=== PATIENT | male | born 1950 | race Caucasian/White ===

== ENCOUNTER → 2021-07-09 10:14 | Outpatient (BNVA) | payer MEDICARE, OTHER, SELFPAY | PROVIDERS: Family Provider Nurse Practitioner Family; PCP Nurse Practitioner Family; Referring Provider Family Medicine; Visit Provider Orthopaedic Surgery | DX: M17.11 Unilateral primary osteoarthritis, right knee (principal); M25.561 Pain in right knee | CPT/HCPCS: 73560; 73565; 80500; 89051 ==

== ENCOUNTER 2021-08-17 14:13 | Outpatient (CLI) | payer MEDICARE, OTHER, SELFPAY ==
--- NOTE | 2021-08-17 15:15 | MR_ITS ---
WS: [id number] MRI RIGHT KNEE HISTORY: M25.569 - Pain in unspecified knee COMPARISON: None available. Anterior cruciate ligament: Mild thickening of the ACL but no full-thickness tear. Posterior cruciate ligament: Intrasubstance degeneration in the mid PCL. Medial collateral ligament: Mild displacement from the joint line by an extruded meniscus. Posterior lateral corner structures: Intact. Medial menisci: Small caliber posterior horn with abnormal signal. Significant fraying along the cary cular surfaces with a horizontal tear extending to the inferior articular surface. Lateral meniscus: Intact. Normal signal, size and shape. Extensor mechanism: Distal quadriceps tendon and patellar tendons are intact. Fluid and soft tissue: Moderate-sized suprapatellar joint effusion. Very tiny Ye's cyst. Osseous and articular structures: Patellofemoral compartment: Lateral subluxation of the patella. Complete loss of cartilage along the lateral patellar facet with bone upon bone. Mild chondromalacia along the medial facet. Subchondral c yst cyst at the patellar eminence. Medial compartment: Moderate narrowing of the medial compartment with loss of cartilage along the eliel ghtbearing surface of the femoral condyle and tibial plateau. The meniscus is extruded from the media l compartment with a very small amount of marrow edema along the tibial plateau. Osteochondral lesion along the nonweightbearing surface of the posterior medial femoral condyle measures 12 mm. Lateral compartment: Mild narrowing of the lateral compartment with thinning of the cartilage. No ful l-thickness defect. MR/MR knee RT wo con* [id number] IMPRESSION: 1. Horizontal tear posterior horn medial meniscus extends to the inferior cary cular surface with additional fraying along the superior and inferior surfaces and meniscal extrusion. 2. Mild lateral subluxation of the patella with complete loss of cartilage queenie ng the lateral patellar facet. 3. Moderate-sized suprapatellar joint effusion. 4. Moderate narrowing medial compartment with loss of cartilage. 5. 12 mm osteochondral lesion nonweightbearing surface of the posterior medial femoral condyle.
== END 2021-08-17 14:14 | disposition home or self-care (01) ==
LOC: RADSHAW 14:20
PROVIDERS: PCP Family Medicine; Visit Provider Orthopaedic Surgery
DX: M25.561 Pain in right knee (principal); S83.241A Other tear of medial meniscus, current injury, right knee, initial encounter; X58.XXXA Exposure to other specified factors, initial encounter; M25.461 Effusion, right knee
CPT/HCPCS: 73721